=== PATIENT | male | born 1990 | race Caucasian/White ===

== ENCOUNTER 2016-05-22 16:23 | Emergency (ER) | payer BC ==
[~2016-05-22] VITALS: Wt 74.8 kg
[~2016-05-22 16:23] MED LIST: BACTROBAN OINT22 GM PO; HYDROCODONE BIT1 T11 PO; MOTRIN800 MG PO; Motrin,Rufen800 MG PO; NKHM; ZOFRAN ODT4 MG SL
[2016-05-22 16:41] VITALS: BP 124/76
[2016-05-22 17:02] LABS: BILIRUBIN NEGATIVE (NEGATIVE); BLOOD NEGATIVE (NEGATIVE); CLARITY CLEAR (CLEAR); COLOR YELLOW (YELLOW); GLUCOSE NEGATIVE (NEGATIVE); KETONE NEGATIVE (NEGATIVE); LEUKO ESTERASE 1+ (NEGATIVE); NITRITE NEGATIVE (NEGATIVE); PROTEIN NEGATIVE (NEGATIVE); UROBILINOGEN 0.2 E.U./dl (0.2-1.0)
[2016-05-22 17:26] LABS: RBC 0-2 rbc/hpf (0-2); URINE REFLEX COMMENT YES (NO)
== END 2016-05-22 17:54 | disposition home or self-care (01) ==
LOC: ED 16:23
PROVIDERS: Nurse Practitioner Family
DX: Z20.2 Contact with and (suspected) exposure to infections with a predominantly sexual mode of transmission (principal); Z88.0 Allergy status to penicillin; Z88.2 Allergy status to sulfonamides; Z88.6 Allergy status to analgesic agent

== ENCOUNTER 2016-07-04 10:38 | Emergency (ER) | payer BC ==
[~2016-07-04] VITALS: Ht 185.4 cm; Wt 72.6 kg
[2016-07-04 10:55] VITALS: BP 128/65
[2016-07-04] MEDS ORDERED: Motrin,Rufen800 MG PO (11:49)
== END 2016-07-04 12:54 | disposition home or self-care (01) ==
LOC: ED 10:38
DX: M25.461 Effusion, right knee (principal); Z88.0 Allergy status to penicillin; Z88.2 Allergy status to sulfonamides; Z88.6 Allergy status to analgesic agent

== ENCOUNTER 2016-09-06 10:50 | Emergency (ER) | payer BC ==
[~2016-09-06] VITALS: Ht 185.4 cm; Wt 72.6 kg
[2016-09-06 10:59] VITALS: BP 135/79
[2016-09-06] MEDS ORDERED: PREDNISONE10 MG PO (11:12)
== END 2016-09-06 13:24 | disposition home or self-care (01) ==
LOC: ED 10:50
DX: L25.9 Unspecified contact dermatitis, unspecified cause (principal); F17.200 Nicotine dependence, unspecified, uncomplicated; Z88.0 Allergy status to penicillin; Z88.2 Allergy status to sulfonamides; Z88.5 Allergy status to narcotic agent

== ENCOUNTER 2018-03-03 13:04 | Emergency (ER) | payer BC ==
[~2018-03-03] VITALS: Wt 68.0 kg
--- NOTE | ~2018-03-03 | EKG ---
[place], [place] ELECTROCARDIOGRAM REPORT NAME: VLADIMIR STEELE UNIT #: [id number] ROOM: DOCTOR: ROSEANNE DRAFT REPORT BIRTHDATE: [birth year] [facility] Test Date: 2018-03-03 Test Time: 13:56:09 Pat Name: VLADIMIR STEELE Department: Room: Gender: Staff Development Manager: : 1990 Requested By: MARSHALL NGUYEN Order Number: [id number] Reading MD: Measurements Intervals [place] Rate: 64 P: 83 GA: 137 QRS: 71 QRSD: 90 T: 68 QT: 401 QTc: 414 Interpretive Statements Sinus rhythm ST elevation suggests acute pericarditis No previous ECG available for comparison CM:EKGRPT:ELECTROCARDIOGRAM REPORT [id number] MARSHALL CAI DRAFT REPORT MARSHALL NGUYEN DO
[~2018-03-03 13:04] MED LIST changes: +PREDNISONE10 MG PO
[2018-03-03 13:51] LABS: BASO % 0.5 % (0.0-1.0); EOS % 0.5 % (1.0-4.0); HEMATOCRIT 43.7 % (42.0-52.0); LYMPH # 1.8 10*3/uL (1.3-4.4); LYMPH % 23.7 % (27.0-41.0); MEAN CELL VOLUME 89.4 fl (80.0-94.0); MEAN CORPUSCULAR HGB 30.7 pg (27.0-31.0); MEAN CORPUSCULAR HGB CONC 34.3 g/dl (33.0-37.0); MEAN PLATELET VOLUME 10.3 fl (9.6-12.3); MONO # 0.7 10*3/uL (0.1-1.0); MONO % 8.6 % (3.0-9.0); NEUT # 5.1 10*3/uL (2.3-7.9); NEUT % 66.3 % (47.0-73.0); PLATELET COUNT AUTOMATED 188 10*3/uL (130-400); RED BLOOD COUNT 4.89 10*6/uL (4.50-5.90); RED CELL DISTRI WIDTH 12.4 % (0-14.5); WHITE BLOOD COUNT 7.7 10*3/uL (4.8-10.8)
[2018-03-03 14:00] LABS: ACT PARTIAL THROMBO TIME 19.7 SECONDS (20.8-31.5); INTERNATIONAL NORM RATIO 1.1 (2.0-3.5)
[2018-03-03 14:07] LABS: ALBUMIN 3.7 gm/dl (3.1-4.5); ALKALINE PHOSPHATASE 70 U/L (45-117); BUN 13 mg/dl (7-24); CHLORIDE 106 mmol/L (98-107); CREATININE 0.99 mg/dL (0.70-1.30); LIPASE 208 U/L (73-393); POTASSIUM 3.5 mmol/L (3.5-5.1); SGOT/AST 12 IU/L (3-35); SGPT/ALT 21 U/L (12-78); SODIUM 140 mmol/L (136-145); TOTAL PROTEIN 7.2 gm/dL (6.4-8.2)
[2018-03-03 14:09] VITALS: BP 112/58
[2018-03-03 14:15] LABS: TROPONIN I < 0.015 ng/ml (<0.045)
== END 2018-03-03 16:08 | disposition left against medical advice (07) ==
LOC: ED 13:04
PROVIDERS: Emergency Medicine
DX: R56.9 Unspecified convulsions (principal); Z88.0 Allergy status to penicillin; Z88.2 Allergy status to sulfonamides; Z88.5 Allergy status to narcotic agent

== ENCOUNTER 2019-04-15 06:15 | Emergency (ER) | payer SELFPAY ==
[~2019-04-15] VITALS: Ht 182.8 cm; Wt 72.6 kg
[~2019-04-15 06:15] MED LIST changes: +OMEPRAZOLE D/R20 MG PO; +VITAMIN D32000 UNI1 PO
[2019-04-15 06:20] VITALS: BP 113/65
== END 2019-04-15 06:45 | disposition home or self-care (01) ==
LOC: ED 06:15
DX: R11.2 Nausea with vomiting, unspecified (principal); F17.200 Nicotine dependence, unspecified, uncomplicated; Z88.0 Allergy status to penicillin; Z88.2 Allergy status to sulfonamides; Z88.5 Allergy status to narcotic agent; Z79.899 Other long term (current) drug therapy

== ENCOUNTER 2019-06-21 20:31 | Emergency (ER) | payer SELFPAY ==
[~2019-06-21] VITALS: Wt 72.6 kg
[2019-06-21 20:38] VITALS: BP 126/74
[2019-06-21 21:21] LABS: BASO # 0.1 10*3/uL (0.0-0.1); BASO % 0.8 % (0.0-1.0); EOS # 0.2 10*3/uL (0.0-0.4); EOS % 2.6 % (1.0-4.0); HEMATOCRIT 45.5 % (42.0-52.0); LYMPH # 3.3 10*3/uL (1.3-4.4); LYMPH % 35.6 % (27.0-41.0); MEAN CELL VOLUME 86.3 fl (80.0-94.0); MEAN CORPUSCULAR HGB 29.4 pg (27.0-31.0); MEAN CORPUSCULAR HGB CONC 34.1 g/dl (33.0-37.0); MEAN PLATELET VOLUME 10.6 fl (9.6-12.3); MONO # 0.8 10*3/uL (0.1-1.0); MONO % 9.1 % (3.0-9.0); NEUT # 4.7 10*3/uL (2.3-7.9); NEUT % 51.7 % (47.0-73.0); PLATELET COUNT AUTOMATED 207 10*3/uL (130-400); RED BLOOD COUNT 5.27 10*6/uL (4.50-5.90); RED CELL DISTRI WIDTH 12.5 % (0-14.5); WHITE BLOOD COUNT 9.1 10*3/uL (4.8-10.8)
[2019-06-21 21:36] LABS: ALBUMIN 3.8 gm/dl (3.1-4.5); ALKALINE PHOSPHATASE 88 U/L (45-117); BUN 12 mg/dl (7-24); CHLORIDE 108 mmol/L (98-107); CREATININE 0.97 mg/dL (0.70-1.30); LIPASE 114 U/L (73-393); POTASSIUM 3.4 mmol/L (3.5-5.1); SGOT/AST 12 IU/L (3-35); SGPT/ALT 21 U/L (12-78); SODIUM 138 mmol/L (136-145); TOTAL PROTEIN 7.4 gm/dL (6.4-8.2)
[2019-06-21 21:42] LABS: BILIRUBIN NEGATIVE (NEGATIVE); BLOOD TRACE-INTACT (NEGATIVE); CLARITY CLEAR (CLEAR); COLOR YELLOW (YELLOW); GLUCOSE NEGATIVE (NEGATIVE); KETONE NEGATIVE (NEGATIVE); LEUKO ESTERASE NEGATIVE (NEGATIVE); NITRITE NEGATIVE (NEGATIVE); UROBILINOGEN 0.2 E.U./dl (0.2-1.0)
[2019-06-21 21:43] LABS: WBC 0-2 wbc/hpf (0-5)
[2019-06-21 21:49] LABS: MUCOUS TRACE
== END 2019-06-21 22:17 ==
LOC: ED 20:31
PROVIDERS: Physician Assistant
DX: R10.84 Generalized abdominal pain (principal); R20.0 Anesthesia of skin; R11.0 Nausea; R19.7 Diarrhea, unspecified; F17.200 Nicotine dependence, unspecified, uncomplicated; Z88.0 Allergy status to penicillin; Z88.2 Allergy status to sulfonamides; Z88.5 Allergy status to narcotic agent; Z79.899 Other long term (current) drug therapy; Z86.14 Personal history of Methicillin resistant Staphylococcus aureus infection

== ENCOUNTER 2019-08-22 13:53 | Emergency (ER) | payer SELFPAY ==
[~2019-08-22] VITALS: Ht 182.8 cm; Wt 70.3 kg
[2019-08-22 14:13] VITALS: BP 111/69
[2019-08-22 15:19] LABS: BASO # 0.1 10*3/uL (0.0-0.1); BASO % 0.7 % (0.0-1.0); EOS # 0.2 10*3/uL (0.0-0.4); EOS % 2.2 % (1.0-4.0); HEMATOCRIT 43.8 % (42.0-52.0); LYMPH # 2.4 10*3/uL (1.3-4.4); LYMPH % 33.1 % (27.0-41.0); MEAN CELL VOLUME 87.3 fl (80.0-94.0); MEAN CORPUSCULAR HGB 29.7 pg (27.0-31.0); MEAN PLATELET VOLUME 10.9 fl (9.6-12.3); MONO # 0.7 10*3/uL (0.1-1.0); MONO % 9.6 % (3.0-9.0); NEUT # 3.9 10*3/uL (2.3-7.9); NEUT % 54.1 % (47.0-73.0); PLATELET COUNT AUTOMATED 187 10*3/uL (130-400); RED BLOOD COUNT 5.02 10*6/uL (4.50-5.90); RED CELL DISTRI WIDTH 12.1 % (0-14.5); WHITE BLOOD COUNT 7.2 10*3/uL (4.8-10.8)
[2019-08-22 15:33] LABS: ALBUMIN 3.9 gm/dl (3.1-4.5); ALKALINE PHOSPHATASE 81 U/L (45-117); BUN 18 mg/dl (7-24); CHLORIDE 106 mmol/L (98-107); CREATININE 0.87 mg/dL (0.70-1.30); LIPASE 564 U/L (73-393); POTASSIUM 3.6 mmol/L (3.5-5.1); SGOT/AST 13 IU/L (3-35); SGPT/ALT 17 U/L (12-78); SODIUM 140 mmol/L (136-145); TOTAL PROTEIN 7.2 gm/dL (6.4-8.2)
== END 2019-08-22 17:13 | disposition home or self-care (01) ==
LOC: ED 13:53
PROVIDERS: Physician Assistant
DX: R74.8 Abnormal levels of other serum enzymes (principal); L21.0 Seborrhea capitis; F17.200 Nicotine dependence, unspecified, uncomplicated; Z88.0 Allergy status to penicillin; Z88.2 Allergy status to sulfonamides; Z88.5 Allergy status to narcotic agent; Z79.899 Other long term (current) drug therapy

== ENCOUNTER 2021-03-28 18:21 | Emergency (ER) | payer SELFPAY ==
[2021-03-28 18:25] VITALS: BP 122/78
[2021-03-28] MEDS ORDERED: NAPROXEN250 MG PO (19:32)
[2021-03-28] MEDS ORDERED: METHOCARBAMOL500 M1 PO (19:32)
== END 2021-03-28 19:47 | disposition home or self-care (01) ==
LOC: ED 18:21
DX: S29.011A Strain of muscle and tendon of front wall of thorax, initial encounter (principal); Z88.0 Allergy status to penicillin; Z88.2 Allergy status to sulfonamides; Z88.6 Allergy status to analgesic agent; Z87.891 Personal history of nicotine dependence; Z98.890 Other specified postprocedural states; X58.XXXA Exposure to other specified factors, initial encounter; Y93.89 Activity, other specified; Y92.89 Other specified places as the place of occurrence of the external cause; Y99.8 Other external cause status

== ENCOUNTER 2023-05-28 18:13 | Emergency (ER) | payer BC ==
[~2023-05-28] VITALS: Ht 180.3 cm; Wt 68.0 kg
[~2023-05-28 18:13] MED LIST changes: +METHOCARBAMOL500 M1 PO; +NAPROXEN250 MG PO
[2023-05-28 18:30] VITALS: BP 107/80
[2023-05-28] MEDS ORDERED: ACETAMINOPHEN 325 MG TAB PO ONE (18:40)
[2023-05-28] MEDS ORDERED: IBUPROFEN 600 MG TAB PO ONE (18:40)
[2023-05-28] MEDS ORDERED: SODIUM CHLORIDE 0.9% 1,000 ML IV ONE (18:45)
[2023-05-28 18:57] LABS: BASO % 0.5 % (0.0-1.0); EOS # 0.1 10*3/uL (0.0-0.4); EOS % 2.3 % (1.0-4.0); HEMATOCRIT 45.4 % (42.0-52.0); LYMPH # 1.4 10*3/uL (1.3-4.4); LYMPH % 25.6 % (27.0-41.0); MEAN CELL VOLUME 87.3 fl (80.0-94.0); MEAN CORPUSCULAR HGB CONC 34.4 g/dl (33.0-37.0); MEAN PLATELET VOLUME 11.3 fl (9.6-12.3); MONO # 0.9 10*3/uL (0.1-1.0); MONO % 16.3 % (3.0-9.0); NEUT # 3.1 10*3/uL (2.3-7.9); NEUT % 55.1 % (47.0-73.0); PLATELET COUNT AUTOMATED 107 10*3/uL (130-400); WHITE BLOOD COUNT 5.6 10*3/uL (4.8-10.8)
[2023-05-28 19:12] LABS: BUN 13 mg/dl (9-23); CHLORIDE 101 mmol/L (98-107); POTASSIUM 3.3 mmol/L (3.4-5.1)
[2023-05-28] MEDS ORDERED: POTASSIUM CHLORIDE 20 MEQ TAB PO ONE (19:25)
== END 2023-05-28 20:07 | disposition home or self-care (01) ==
LOC: ED 18:13
PROVIDERS: Nurse Practitioner Family
DX: B34.9 Viral infection, unspecified (principal); Z20.822 Contact with and (suspected) exposure to COVID-19; R11.2 Nausea with vomiting, unspecified; Z88.0 Allergy status to penicillin; Z88.2 Allergy status to sulfonamides; Z88.5 Allergy status to narcotic agent; Z98.890 Other specified postprocedural states; F12.10 Cannabis abuse, uncomplicated; F17.210 Nicotine dependence, cigarettes, uncomplicated